=== PATIENT | female | born 1995 | race African-American/Black ===

== ENCOUNTER 2017-09-01 02:22 | Emergency (ER) | payer SELFPAY ==
[~2017-09-01] VITALS: Ht 172.7 cm; Wt 75.0 kg
[2017-09-01] MEDS ORDERED: SODIUM CHLORIDE 0.9% 1,000 ML IV ONE (02:40)
[2017-09-01 03:01] LABS: BASOPHILS % 0.4 % (0.0-2.0); EOSINOPHILS % 0.8 % (0.0-5.0); HEMATOCRIT. 35.8 % (36.0-48.0); HEMOGLOBIN. 11.8 g/dL (12.0-16.0); LYMPHOCYTES % 19.6 % (20.0-50.0); MEAN CORPUSCULAR HEMOGLOBIN 25.5 pg (28.0-32.0); MEAN CORPUSCULAR VOLUME 77.5 fL (81.0-99.0); MEAN PLATELET VOLUME 9.2 fl (7.4-10.4); MONOCYTES % 6.7 % (2.0-8.0); NEUTROPHILS % 72.5 % (40.0-76.0); PLATELET 228 x1000/uL (130-400); RED BLOOD CELL COUNT 4.62 mill/uL (4.2-5.4); RED CELL DISTRIBUTION WIDTH 14.6 % (11.6-14.6)
[2017-09-01] MEDS ORDERED: MORPHINE SULFATE 2 MG/ML CPJ (NOT FOR IM USE) IV STA (03:02)
[2017-09-01 03:06] LABS: PROTHROMBIN TIME 10.1 sec (9.4-11.6)
[2017-09-01 03:22] LABS: CARBON DIOXIDE 21 mEq/L (21-32); CHLORIDE 107 mEq/L (98-107); ETHANOL BLOOD < 10 mg/dL
[2017-09-01 03:30] LABS: B-HCG QUANTITATIVE 88853 mIU/mL (<3)
[2017-09-01] MEDS ORDERED: SODIUM CHLORIDE 0.9% 1000ML BAG (SEPSIS BOLUS) IV SCH (03:45)
[2017-09-01 04:45] VITALS: BP 119/69
== END 2017-09-01 05:05 | disposition home or self-care (01) ==
LOC: ER 02:22
DX: O47.02 False labor before 37 completed weeks of gestation, second trimester (principal); O26.891 Other specified pregnancy related conditions, first trimester; J45.909 Unspecified asthma, uncomplicated; Z98.890 Other specified postprocedural states; Z3A.14 14 weeks gestation of pregnancy
CPT/HCPCS: 36415; 76700; 76801; 76817; 80053; 83605; 83690; 84702; 85025; 85610; 96361; 96374; 99285; G0482; J2270; J7030; Z7610